=== PATIENT | female | born 1960 | race Caucasian/White ===

== ENCOUNTER 2021-12-24 16:34 | Emergency (ER) | payer OTHER, SELFPAY ==
[2021-12-24 16:35] VITALS: BP 134/85; PULSE 63; PULSE 64; RESP 16; TEMP 35.7; O2SAT 97; O2SAT 98; BMI 23.3
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
[2021-12-24] MEDS: Diphth,Pertuss(Acell),Tet Vac 0.5 ML Vial IM (17:44)
[2021-12-24] MEDS: Lidocaine 1% (20 ml mdv) 20 ML Vial INFILT (17:45)
[2021-12-24] MEDS: Lidocaine/Epi/Tetracaine 50 ML 1 APPLIC TOPICAL (17:45)
--- NOTE | 2021-12-24 18:47 | CM.ED ---
SW Note SW met with patient as per bed board patient has no PCP. SW met with Patient. Patient voiced she has a PCP at [facility] but could not recall her PCP's name. No other issues or concerns voiced. SW remains available if needs arise. Yamilex JORDAN
[2021-12-24 20:15] VITALS: BP 132/60; PULSE 79; RESP 16
== END 2021-12-24 20:16 | disposition home or self-care (01) ==
PROVIDERS: Emergency Provider Emergency Medicine; Visit Provider Emergency Medicine
DX: S81.811A Laceration without foreign body, right lower leg, initial encounter (principal); S81.812A Laceration without foreign body, left lower leg, initial encounter; W28.XXXA Contact with powered lawn mower, initial encounter; Y93.H9 Activity, other involving exterior property and land maintenance, building and construction; Y99.8 Other external cause status; Z23 Encounter for immunization
CPT/HCPCS: 12005; 90471; 90715; 99285